=== PATIENT | male | born 1950 | race Caucasian/White ===

== ENCOUNTER 2024-04-06 12:35 | Outpatient (CLI) | payer MEDICARE ==
[~2024-04-06 12:35] MED LIST: Iopamidol 370 76% 100 ML VIAL ONE
== END 2024-04-06 12:36 | disposition home or self-care (01) ==
LOC: CSHCT 12:35
PROVIDERS: ATTEND Thoracic Surgery (Cardiothoracic Vascular Surgery)
DX: I65.23 Occlusion and stenosis of bilateral carotid arteries (principal)
CPT/HCPCS: 70498; 82565; Q9967